=== PATIENT | female | born 1955 ===

== ENCOUNTER 2017-03-30 18:34 | Inpatient (IN) | payer MEDICARE, OTHER ==
[2017-03-30 18:55] VITALS: BMI 19.7
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
[2017-03-30 19:57] LABS: BASO # 0.02 K/mm3 (0.0-2.0); BASO % 0.4 % (0.0-3.0); EOS # 0.1 (0.0-0.7); EOS % 2.3 % (1.5-5.0); GRAN # 2.84 (1.4-6.5); GRAN % 49.9 % (50.0-68.0); LYMPH # 2.2 (1.2-3.4); LYMPH % 38.9 % (22.0-35.0); MEAN CELL VOLUME 88.9 fl (80.0-105.0); MEAN CORPUSCULAR HEMOGLOBIN 29.3 pg (25.0-35.0); MEAN PLATELET VOLUME 9.4 fl (7.0-11.0); MONO # 0.5 (0.1-0.6); MONO % 8.5 % (1.0-6.0); RBC 4.43 10^6/uL (3.5-6.1); RED CELL DISTRIBUTION WIDTH 14.2 % (11.5-14.5); WHITE BLOOD COUNT 5.7 10^3/ul (4.5-11.0)
[2017-03-30 20:12] LABS: ALB/GLOB RATIO 1.2 (1.1-1.8); ALBUMIN 3.8 g/dL (3.0-4.8); ALT/SGPT 32 U/L (7-56); AST/SGOT 34 U/L (14-36); BLOOD UREA NITROGEN 22 mg/dL (7-21); CALCIUM 9.9 mg/dL (8.4-10.5); GFR AFRICAN-AMERICAN > 60; GFR NON-AFRICAN AMERICAN > 60
[2017-03-30 20:23] LABS: ACETAMINOPHEN < 10.0 ug/ml (10.0-20.0); SALICYLATE < 1 mg/dL (2.0-20.0)
[2017-03-30 20:42] LABS: URINE BILIRUBIN NEGATIVE (NEGATIVE); URINE BLOOD MODERATE (NEGATIVE); URINE GLUCOSE (UA) NEGATIVE (NEGATIVE); URINE LEUKOCYTE ESTERASE NEGATIVE Leu/uL (NEGATIVE); URINE NITRATE NEGATIVE (NEGATIVE); URINE PROTEIN NEGATIVE mg/dL (<30 mg/dL); URINE UROBILINOGEN 0.2 E.U./dL (<1 E.U./dL)
[2017-03-30 20:45] LABS: URINE APPEARANCE SL CLOUDY (CLEAR); URINE COLOR YELLOW (YELLOW)
[2017-03-30 20:55] LABS: URINE EPITHELIAL CELLS 0 - 2 /hpf (0-5); URINE WBC 0 - 2 /hpf (0-6)
[2017-03-30 20:56] LABS: URINE BACTERIA MANY (NEG)
[2017-03-30 21:04] LABS: BARBITURATES, UR NEGATIVE (NEGATIVE); BENZODIAZEPINES, UR NEGATIVE (NEGATIVE); OPIATES, UR NEGATIVE (NEGATIVE); PHENCYCLIDINE, UR NEGATIVE (NEGATIVE)
[2017-03-30] MEDS ORDERED: cefTRIAXone 1 gm 1 GM/100 ML BAG IVPB STA (21:56)
--- NOTE | 2017-03-31 08:19 | RAD ---
PROCEDURE: CHEST RADIOGRAPH, 1 VIEW HISTORY: r/o infiltrate COMPARISON: None available. FINDINGS: LUNGS: The lungs are clear. PLEURA: No pneumothorax or pleural fluid seen. CARDIOVASCULAR: Normal. OSSEOUS STRUCTURES: No significant abnormalities. VISUALIZED UPPER ABDOMEN: Normal. OTHER FINDINGS: None. IMPRESSION: No active pulmonary disease.
--- NOTE | 2017-03-31 14:04 | CON ---
DATE: 03/31/2017 CHIEF COMPLAINT: History of Lewy body dementia. HISTORY OF PRESENT ILLNESS: A 61-year-old woman with history of Alzheimer's type with Lewy body dementia which has been diagnosed by psychiatrist as well as outpatient neurologist who came in for worsening memory problems and is unable to answer questions during our interview during the examination. She was very tangential. She is only alert to herself but not to person, place or month. She is very restless to removing things from her body. She is on Klonopin 1 mg p.o. t.i.d. at home as well as Remeron 15 mg p.o. at bedtime. She is mildly dehydrated, otherwise labs are unremarkable. Blood pressures are stable. She is moving all extremities but has some cogwheel rigidity at the both wrists and slight increased tone throughout. She is mumbling words. There seems most likely confabulation. She is incontinent and uses diapers. She is restless to touch and remove things at times. PAST MEDICAL HISTORY: Alzheimer's type dementia, Lewy body dementia. REVIEW OF SYSTEMS: A 14-point review of systems is negative except per the HPI. FAMILY HISTORY: Noncontributory. SOCIAL HISTORY: No illicit drug use, smoking or ETOH abuse. MEDICATIONS: Reviewed by nursing reconciliation sheet. ALLERGIES: NO KNOWN DRUG ALLERGIES. PHYSICAL EXAMINATION: VITAL SIGNS: Temperature is 97.7, pulse rate 86, blood pressure 115/67, respiratory rate of 18, and oxygen saturation 97% on room air. GENERAL: The patient is sitting up in bed, in no acute distress. HEENT: Head is atraumatic and normocephalic. PERRLA. Extraocular muscles intact. NECK: Supple. No JVD. No adenopathy noted. LUNGS: Clear to auscultation. No adventitious sounds. HEART: S1 and S2. Normal rate and rhythm. No murmurs, rubs, or gallops. ABDOMEN: Soft, nontender, nondistended. Bowel sounds are present. EXTREMITIES: No clubbing, no cyanosis. Peripheral pulses are 2+ felt bilaterally. NEURO: The patient is alert and oriented to self, not month or year. Recall after 5 minutes is 0 out of 3. Poor attention, slow thought process. She is slightly confabulating and has poor judgement. Cranial nerves II through XII intact. Motor exam; increased tone throughout, moves all extremities equally. Mild cogwheel rigidity at the both wrists and slight increased tone throughout. Sensory exam, light touch, pinprick, proprioception, vibration is intact. DTRs are 2+ throughout. Coordination difficult to do with the patient not cooperating as well as gait is deferred for now. LABORATORY DATA: Sodium 147, potassium 4.1, chloride of 109, carbon dioxide 30, BUN of 22, creatinine of 0.8, random glucose of 103. ASSESSMENT AND PLAN: This is a 61-year-old woman with worsening memory issues with history of Lewy body dementia, Alzheimer's type dementia, who has been on and off treatments by psychiatrist, Dr. Cantrell, and her neurologist but has been having worsening hallucinations, more restless and has tried multiple antipsychotics which did not suit the patient in the past. I was called to evaluate. As of now, there is no really much cure for the dementia with Lewy body, most of which is palliative. Since she is not doing well to atypical antipsychotics in the past, I would consider to continue with her Klonopin 1 mg p.o. t.i.d. and add Namenda 10 mg p.o. b.i.d. for cognition and to avoid restlessness. I am unaware if she is able to tolerate Seroquel or not. We will defer that to the psychiatrist. Clozaril is another option as per Psychiatry and trazodone might be useful at night 50 mg p.o. at bedtime. At this time, she will need more of long-term placement, delirium precautions, avoid night time interruptions and we need a Physical Therapy/Occupational Therapy evaluation. Continue with psychiatric followup. Thank you for this consult. Joselito Baker MD
--- NOTE | 2017-03-31 15:59 | CARD ---
APPROVED REPORT EKG Measurement Heart [id number] <Conclusion> Normal sinus rhythm Rightward axis Borderline ECG
[2017-03-31 18:35] LABS: FOLATE > 20.0 ng/mL
--- NOTE | 2017-03-31 19:01 | HP ---
HISTORY OF PRESENT ILLNESS: The patient is admitted to the [facility] in [place] via the Emergency Room last night. The patient presented with altered mental state, aggressive behavior according to the family. The patient also had some discomfort in the abdomen and apparently was in retention of urine. The patient has past history of Alzheimer's disease with Lewy body. The patient has no history of alcohol or substance abuse history. He has no previous history of surgery. The patient has had history of neurological and psychiatric evaluation in the past. The patient has no known allergies either. The patient does not have a DNR. After evaluation in the Emergency Room, the patient was admitted to the [facility] for evaluation and treatment for her altered mental state. We will have the patient was seen by the Behavior Care Physician and a Neurologist. PHYSICAL EXAMINATION: GENERAL: The patient is a frail lady, not capable of answering questions. VITAL SIGNS: Pulse was 75, blood pressure was 115/67, respirations are 16 and O2 sat 100% on room air. HEENT: The patient's head is normocephalic. NECK: Thyroid is not enlarged. Carotid pulses are present. LUNGS: Trachea is central. Breath sounds are vesicular. No adventitious sounds. HEART: Normal sinus rhythm. S1 and S2 present. ABDOMEN: Soft. Liver and spleen not palpable. 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 LABORATORY DATA: Urinalysis, the patient had to be catheterized because she had retention of urine. The patient's blood work shows that her white count was 5,700, granulocytes of 49%, and leukocytes of 38.9%. The patient's sodium, potassium, BUN and creatinine were remarkably within normal range. The patient's GFR is good. Chest x-ray was clear. The patient's Psychiatric evaluation in the Emergency Room was done. The patient is admitted because of behavioral disorder and we will followup and have doctor from the Behavioral Care Unit also see the patient and a Neurologist will also see the patient on consultation. MEDICATIONS: The patient is on Klonopin 1 mg t.i.d. IMPRESSION AND PLAN: The patient is on Remeron 50 mg at bedtime. She will be put on Macrobid twice a day for urinary retention, urinary infection and hematuria. Jessica Carlson MD [facility] # [id number]
[2017-04-01 08:01] LABS: BASO # 0.03 K/mm3 (0.0-2.0); BASO % 0.6 % (0.0-3.0); EOS # 0.2 (0.0-0.7); EOS % 2.8 % (1.5-5.0); GRAN # 2.08 (1.4-6.5); GRAN % 38.3 % (50.0-68.0); HEMOGLOBIN 12.3 g/dL (12.0-16.0); LYMPH # 2.8 (1.2-3.4); LYMPH % 51.1 % (22.0-35.0); MEAN CELL VOLUME 88.3 fl (80.0-105.0); MEAN CORPUSCULAR HEMOGLOBIN 28.7 pg (25.0-35.0); MEAN CORPUSCULAR HGB CONC 32.5 g/dl (31.0-37.0); MEAN PLATELET VOLUME 9.6 fl (7.0-11.0); MONO # 0.4 (0.1-0.6); MONO % 7.2 % (1.0-6.0); RBC 4.28 10^6/uL (3.5-6.1); RED CELL DISTRIBUTION WIDTH 14.2 % (11.5-14.5); WHITE BLOOD COUNT 5.4 10^3/ul (4.5-11.0)
[2017-04-01 08:28] LABS: ALB/GLOB RATIO 1.2 (1.1-1.8); ALBUMIN 3.6 g/dL (3.0-4.8); ALT/SGPT 36 U/L (7-56); AST/SGOT 41 U/L (14-36); BLOOD UREA NITROGEN 21 mg/dL (7-21); CALCIUM 9.7 mg/dL (8.4-10.5); GFR AFRICAN-AMERICAN > 60; GFR NON-AFRICAN AMERICAN > 60
--- NOTE | 2017-04-01 13:43 | PN ---
DATE: 04/01/2017 The patient is seen in [facility]. Room 562, bed 1. SUBJECTIVE: The patient was admitted via the emergency room for altered mental state, aggressive behavior, and the patient has also some discomfort in the abdomen. The patient had retention of urine. At the time of evaluation in the ER, she had to have a straight cath done. The patient has had previous diagnosis of Alzheimer's disease with Lewy body. PHYSICAL EXAMINATION: GENERAL: Currently, the patient is lying down, asleep. I tried to wake her up, but she was under sedation. The patient takes Klonopin and Remeron. VITAL SIGNS: The pulse is 80, blood pressure 104/65, respirations are 18. The patient is afebrile. LUNGS: Clear. HEART: Normal sinus rhythm. ABDOMEN: Soft. Liver and spleen are not palpable. 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 The patient's medications will be continued. The patient should be evaluated by the behavioral care doctor. Consultation has been placed. We will continue current management and follow. Jessica Carlson MD
--- NOTE | 2017-04-01 17:27 | CT ---
PROCEDURE: CT HEAD WITHOUT CONTRAST. HISTORY: AMS/DEMENTIA COMPARISON: No prior study available for comparison. TECHNIQUE: Axial computed tomography images were obtained through the head/brain without intravenous contrast. Radiation dose: Total exam DLP = 849.48 mGy-cm. This CT exam was performed using one or more of the following dose reduction techniques: Automated exposure control, adjustment of the mA and/or kV according to patient size, and/or use of iterative reconstruction technique. FINDINGS: HEMORRHAGE: No acute parenchymal, subarachnoid nor extra-axial hemorrhage. BRAIN: Moderate diffuse/confluent chronic white matter ischemic changes seen extending peripherally into the deep and subcortical white matter both cerebral hemispheres. . No evidence of large acute infarct. No obvious parenchymal nor extra-axial mass or collection seen on this noncontrast study. Moderate central volume loss. VENTRICLES: No obstructive hydrocephalus. CALVARIUM: There are no acute calvarial fractures. PARANASAL SINUSES: Diminutive appearing/hypoplastic maxillary antra. The remaining visualized paranasal sinuses well-developed and currently well-aerated. No fluid levels seen to suggest acute sinusitis. Minimal mucosal thickening within a few ethmoid air cells. MASTOID AIR CELLS: Unremarkable as visualized. No inflammatory changes. OTHER FINDINGS: Orbits and contents grossly unremarkable. IMPRESSION: No acute intracranial hemorrhage. Moderate diffuse/confluent chronic white matter ischemic changes. Moderate central volume loss.
[2017-04-01] MEDS: Potassium Chloride 20 mEq ER Tab PO SCH (17:43)
[2017-04-01] MEDS: Pantoprazole 40 mg EC Tab PO SCH (17:50)
[2017-04-02] MEDS: Pantoprazole 40 mg EC Tab PO SCH (05:51)
[2017-04-02 07:37] LABS: LDL CHOLESTEROL 68 mg/dL (0-129)
[2017-04-02 07:38] LABS: ALB/GLOB RATIO 1.2 (1.1-1.8); ALBUMIN 4.3 g/dL (3.0-4.8); ALT/SGPT 40 U/L (7-56); AST/SGOT 43 U/L (14-36); BILIRUBIN,DIRECT 0.4 mg/dL (0.0-0.4); BLOOD UREA NITROGEN 20 mg/dL (7-21); GFR AFRICAN-AMERICAN > 60; GFR NON-AFRICAN AMERICAN > 60; HDL CHOLESTEROL 60 mg/dL (29-60); MAGNESIUM 2.1 mg/dL (1.7-2.2)
[2017-04-02 07:42] LABS: FREE T4 0.77 ng/dL (0.78-2.19); T4 8.5 ug/dL (5.5-11.0)
[2017-04-02 08:34] LABS: BASO # 0.02 K/mm3 (0.0-2.0); BASO % 0.3 % (0.0-3.0); EOS # 0.2 (0.0-0.7); EOS % 2.5 % (1.5-5.0); GRAN # 3.29 (1.4-6.5); GRAN % 51.4 % (50.0-68.0); LYMPH # 2.3 (1.2-3.4); LYMPH % 36.6 % (22.0-35.0); MEAN CELL VOLUME 88.8 fl (80.0-105.0); MEAN CORPUSCULAR HEMOGLOBIN 29.7 pg (25.0-35.0); MEAN CORPUSCULAR HGB CONC 33.4 g/dl (31.0-37.0); MEAN PLATELET VOLUME 9.9 fl (7.0-11.0); MONO # 0.6 (0.1-0.6); MONO % 9.2 % (1.0-6.0); RBC 4.72 10^6/uL (3.5-6.1); RED CELL DISTRIBUTION WIDTH 14.1 % (11.5-14.5); WHITE BLOOD COUNT 6.4 10^3/ul (4.5-11.0)
--- NOTE | 2017-04-02 09:21 | CP.PCM.PN ---
<Yen Alvarez - Last Filed: 04/02/17 10:05> Subjective - Date & Time of Evaluation Date of Evaluation: 04/02/17 Time of Evaluation: 09:22 - Subjective Subjective: Neurology PGY-[address] Baker Confusion at times. AAO x 1. At times, pt was difficult to be redirected per RN. Figitting in bed. Calm as of this moment Objective - Vital Signs/Intake and Output Vital Signs (last 24 hours): Temp Pulse Resp BP Pulse Ox 97.9 F 75 16 112/73 96 04/01/17 16:00 04/01/17 16:00 04/01/17 16:00 04/01/17 16:00 04/01/17 16:00 Intake and Output: 04/02/17 04/02/17 06:59 18:59 Intake Total 240 Output Total 0 Balance 240 - Medications Medications: Current Medications Clonazepam (Klonopin) 1 mg PO TID [facility] PRN Reason: Protocol Last Admin: 04/01/17 17:43 Dose: 1 mg Heparin Sodium (Porcine) (Heparin) 5,000 units SC Q8 [facility] PRN Reason: Protocol Last Admin: 04/02/17 05:50 Dose: 5,000 units Mirtazapine (Remeron) 15 mg PO HS [facility] Last Admin: 04/01/17 21:13 Dose: 15 mg Nitrofurantoin Macrocrystals (Macrobid) 100 mg PO Q12 [facility] Stop: 04/03/17 23:59 Last Admin: 04/01/17 21:13 Dose: 100 mg Pantoprazole Sodium (Protonix Ec Tab) 40 mg PO 0600 [facility] Last Admin: 04/02/17 05:51 Dose: 40 mg - Labs Labs: 04/02/17 08:15 04/02/17 06:30 - Constitutional Appears: No Acute Distress - Head Exam Head Exam: ATRAUMATIC, NORMAL INSPECTION, NORMOCEPHALIC - Eye Exam Eye Exam: EOMI, Normal appearance, PERRL Pupil Exam: NORMAL ACCOMODATION - ENT Exam ENT Exam: Mucous Membranes Moist - Neck Exam Additional comments: supple - Respiratory Exam Respiratory Exam: Clear to Ausculation Bilateral, NORMAL BREATHING PATTERN - Cardiovascular Exam Cardiovascular Exam: REGULAR RHYTHM, +S1, +S2. absent: Murmur - Neurological Exam Additional comments: Alert and oriented to self Recall 0/3 Poor attention Motor: move all extremities. mild cogwheel rigitidy at both rists and slight increased tone throughout Sensory: intact DTR: 2+ Coordination: limited by pt coorperation - Psychiatric Exam Psychiatric exam: Flat Affect - Skin Skin Exam: Dry, Warm Assessment and Plan - Assessment and Plan (Free Text) Plan: Ms Janie Diaz, 61F, with PMH Alzheimer's type with Lewy body dementia c/o worsening memory problem. She was tangential, AAO to self only and restless. She tried multiple antipsychotics but did not suit the pt in the past. - CT head: moderate central volume loss; moderate diffuse confluent chronic white matter ischemic changes - Continue Klonopin 1 TID - Add Namenda 10 BID for cognition and avoid restlesness - Defer to psychiatrist re: seroquel cs Clozaril vs trazodone 50 HS - recommend long-term placement, delirium precaitions, avoid night time interruptions - PT/OT - Continue psych follow up - ____Pending EEG, carotid u/s, ECHO - Continue UTI management for primary Outpt Psychiatry: Dr Cantrell Outpt Neurologist: s/r/d/w Dr. Baker <Joselito Baker - Last Filed: 04/02/17 11:05> Objective - Vital Signs/Intake and Output Vital Signs (last 24 hours): Temp Pulse Resp BP Pulse Ox 97.9 F 75 16 112/73 96 04/01/17 16:00 04/01/17 16:00 04/01/17 16:00 04/01/17 16:00 04/01/17 16:00 Intake and Output: 04/02/17 04/02/17 06:59 18:59 Intake Total 240 Output Total 0 Balance 240 - Medications Medications: Current Medications Clonazepam (Klonopin) 1 mg PO TID [facility] PRN Reason: Protocol Last Admin: 04/02/17 09:23 Dose: 1 mg Heparin Sodium (Porcine) (Heparin) 5,000 units SC Q8 [facility] PRN Reason: Protocol Last Admin: 04/02/17 05:50 Dose: 5,000 units Memantine (Namenda) 10 mg PO BID [facility] Mirtazapine (Remeron) 15 mg PO HS [facility] Last Admin: 04/01/17 21:13 Dose: 15 mg Nitrofurantoin Macrocrystals (Macrobid) 100 mg PO Q12 [facility] Stop: 04/03/17 23:59 Last Admin: 04/02/17 09:23 Dose: 100 mg Pantoprazole Sodium (Protonix Ec Tab) 40 mg PO 0600 [facility] Last Admin: 04/02/17 05:51 Dose: 40 mg - Labs Labs: 04/02/17 08:15 04/02/17 06:30 Attending/Attestation - Attestation I have personally seen and examined this patient.: Yes I have fully participated in the care of the patient.: Yes I have reviewed all pertinent clinical information, including history, physical exam and plan: Yes
--- NOTE | 2017-04-02 11:54 | CP.PCM.PN ---
Subjective - Date & Time of Evaluation Date of Evaluation: 04/02/17 Time of Evaluation: 11:48 - Subjective Subjective: Medicine Progress Note: Patient seen and assessed at bedside. Patient noted to be restless overnight, with nursing staff reporting that patient continuously wrapped her sheets around her hand. Patient awake and alert but uncooperative with examination. Patient unresponsive to HPI/ROS questioning in both guatemalan and bengali. ROS limited due to patient cooperation. Objective - Vital Signs/Intake and Output Vital Signs (last 24 hours): Temp Pulse Resp BP Pulse Ox 97.9 F 75 16 112/73 96 04/01/17 16:00 04/01/17 16:00 04/01/17 16:00 04/01/17 16:00 04/01/17 16:00 Intake and Output: 04/02/17 04/02/17 06:59 18:59 Intake Total 240 Output Total 0 Balance 240 - Medications Medications: Current Medications Clonazepam (Klonopin) 1 mg PO TID [facility] PRN Reason: Protocol Last Admin: 04/02/17 09:23 Dose: 1 mg Heparin Sodium (Porcine) (Heparin) 5,000 units SC Q8 [facility] PRN Reason: Protocol Last Admin: 04/02/17 05:50 Dose: 5,000 units Memantine (Namenda) 10 mg PO BID [facility] Last Admin: 04/02/17 11:12 Dose: Not Given Mirtazapine (Remeron) 15 mg PO HS [facility] Last Admin: 04/01/17 21:13 Dose: 15 mg Nitrofurantoin Macrocrystals (Macrobid) 100 mg PO Q12 [facility] Stop: 04/03/17 23:59 Last Admin: 04/02/17 09:23 Dose: 100 mg Pantoprazole Sodium (Protonix Ec Tab) 40 mg PO 0600 [facility] Last Admin: 04/02/17 05:51 Dose: 40 mg - Labs Labs: 04/02/17 08:15 04/02/17 06:30 - Constitutional Appears: Non-toxic, No Acute Distress - Head Exam Head Exam: ATRAUMATIC, NORMAL INSPECTION, NORMOCEPHALIC - Eye Exam Eye Exam: Normal appearance - ENT Exam ENT Exam: Mucous Membranes Moist, Normal Exam - Neck Exam Neck Exam: Full ROM, Normal Inspection. absent: Lymphadenopathy - Respiratory Exam Respiratory Exam: Clear to Ausculation Bilateral, NORMAL BREATHING PATTERN - Cardiovascular Exam Cardiovascular Exam: REGULAR RHYTHM, RRR, +S1, +S2 - GI/Abdominal Exam GI & Abdominal Exam: Soft, Normal Bowel Sounds - Extremities Exam Extremities Exam: Full ROM, Normal Capillary Refill, Normal Inspection. absent : Calf Tenderness, Joint Swelling, Pedal Edema, Tenderness - Back Exam Back Exam: Full ROM, NORMAL INSPECTION. absent: CVA tenderness (L), CVA tenderness (R) - Neurological Exam Neurological Exam: Alert, Awake. absent: Oriented x3 - Psychiatric Exam Psychiatric exam: Flat Affect - Skin Skin Exam: Dry, Intact, Normal Color, Warm Assessment and Plan - Assessment and Plan (Free Text) Assessment: 61 year old female with a past medical history significant for Alzheimer's with Lewy body dementia who presented with family complaining of worsening memory problem. She has been uncooperative by unresponsiveness to most questioning since admission but was noted to be oriented to self. She has tried multiple antipsychotics in the past with mixed results as far as relief of her symptoms. Plan: 1. AMS in setting of Alzheimer's/Lewy Body Dementia -CT Head showed no acute intracranial abnormalities -Chest X-Ray showed no active pulmonary disease -EKG showed NSR -UDS negative -Echo, Carotid Doppler and EEG pending -RPR and Lyme serology pending -Continue Namenda -Neurology and Psychiatry consulted, all recommendations appreciated 2. UTI -UA showing many bacteria with no epithelial cells, no LE, no nitrates and 2-5 WBC's -Continue Macrobid -Urology consulted, all recommendations appreciated 3. History of Depression/Anxiety -Continue Klonopin and Remeron GI Prophylaxis: Protonix DVT Prophylaxis: Heparin and SCD's Diet: Regular Dispo: TCU evaluation pending Patient seen and case discussed with attending, Dr. Devries.
[2017-04-02 13:31] LABS: FOLATE > 20.0 ng/mL
--- NOTE | 2017-04-02 16:05 | EEG ---
DATE: 04/02/2017 ELECTROENCEPHALOGRAM CONDITION OF THE RECORDING: Drowsy. MEDICATIONS: Reviewed by nursing reconciliation sheet. INTERPRETATION: This is a 16-channel international recording. Background activity was composed of 5 to 7 cycles per second. There was small amount of beta activity of 16 to 20 cycles per second seen in this tracing. There was increased amount of theta activity of 5 to 7 cycles per second seen in this tracing. Drowsiness was characterized by mixed beta and theta activities. Sleep was characterized by vertex transient waves, sleep spindles, and bilateral slowing. Photic stimulation showed no changes in the tracing. No paroxysmal activity is noted in this recording. CONCLUSION: This is an abnormal electroencephalogram due to presence of mild diffuse slowing throughout. No evidence of any epileptiform activity. It is mostly consistent with bilateral cerebral dysfunction, mild type. Joselito Baker MD
[2017-04-02 19:44] LABS: LYME IGM NEGATIVE (NEGATIVE)
[2017-04-02 20:19] LABS: LYME IGG NEGATIVE (NEGATIVE)
[2017-04-02] MEDS: Potassium Chloride 20 mEq ER Tab PO SCH (22:18)
[2017-04-02 23:28] LABS: URINE BILIRUBIN NEGATIVE (NEGATIVE); URINE BLOOD SMALL (NEGATIVE); URINE GLUCOSE (UA) NEGATIVE (NEGATIVE); URINE LEUKOCYTE ESTERASE NEGATIVE Leu/uL (NEGATIVE); URINE NITRATE NEGATIVE (NEGATIVE); URINE PROTEIN NEGATIVE mg/dL (<30 mg/dL); URINE UROBILINOGEN 0.2 E.U./dL (<1 E.U./dL)
[2017-04-02 23:29] LABS: URINE APPEARANCE CLEAR (CLEAR); URINE COLOR YELLOW (YELLOW)
[2017-04-02 23:50] LABS: URINE BACTERIA OCC (NEG); URINE WBC 0 - 2 /hpf (0-6)
--- NOTE | 2017-04-03 02:37 | PN ---
DATE: 04/02/2017 LOCATION: Room 562, bed 1. SUBJECTIVE: The patient's overnight nurse's notes were reviewed. The patient was found to be confused, disoriented. Episodic restlessness also was noted. The patient was found to be incontinent of urine as per the nurse's notes. The patient continued to be confused. During the night, the patient slept well. The patient was seen by the psychiatrist today. The patient was found to be alert, awake, oriented x1. jig worker has spoken to the patient's [id number]. OBJECTIVE: VITAL SIGNS: T-max 98, heart rates 66, 75, 68, 79, blood pressures 112/73, 106/84, 104/65, 102/62, respirations 16-18, O2 sat 98-96%. HEENT: Head normocephalic, atraumatic. Pinkish conjunctivae. Dry oral mucosa. NECK: No neck rigidity. Questionable soft carotid bruit. CHEST: Kyphosis. LUNG: The patient has upper lung field rhonchi anteriorly. No rales, crackles or wheezing. CARDIOVASCULAR: S1, S2, regular rhythm. Unable to appreciate any murmur, gallop or rub at this time. ABDOMEN: Soft, positive bowel sounds. No hepatosplenomegaly noted. No guarding. No rigidity. No rebound tenderness. GENITALIA: Female. RECTAL: Examination is deferred. EXTREMITIES: Show no pitting edema, no calf numbness, no Homans' sign. Positive SCDs noted. NEUROLOGICAL: Cranial nerves II-XII limited. The patient is confused. Disoriented. MUSCULOSKELETAL: Shows a body mass index of 18.6. DIAGNOSTIC DATA: On 04/02/2017; WBC 6.4, hemoglobin/hematocrit 14 and 42, platelet 228. Sodium 144, potassium 3.7, chloride 105, CO2 30, anion gap 13, BUN 20, creatinine 0.7, GFR greater than 60, glucose 89, calcium 10.0, magnesium 2.1, AST 43, rest of the LFTs are normal. Cholesterol 154, LDL 68, HDL 60. Vitamin B12 of 418. Vitamin D 25-hydroxy 51. TSH 3.08, T4 is 8.0. Urine drug screen is negative. Salicylate, alcohol, and Tylenol negative. Lyme IgM/IgG negative. RPR negative. EEG shows diffuse slowing with bilateral cerebral hemisphere dysfunction. IMPRESSION AND PLAN 1. Behavioral disorder. 2. Acute exacerbation of dementia with delirium. 3. History of Lewy body Alzheimer's type dementia. 4. Acute exacerbation of dementia. 5. Confusion. 6. Memory and cognitive impairment. 7. Possible behavioral disorder. 8. Hypokalemia. 9. Prerenal kidney injury. 10. Mild transaminitis. 11. Microscopic hematuria and bacteriuria 12. Bilateral cerebral dysfunction. 13. 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 14. Moderate diffuse chronic white matter ischemic disease of the brain with cerebral cortical atrophy of the brain. 15. Deconditioning. 16. Gait dysfunction. 17. Cerebral cortical atrophy of the brain. PLAN: At this time, patient is currently being followed by Neurology and Psychiatry. The patient's case was referred to TCU. Current medications are Heparin 5000 subcu q.8, Klonopin 1 mg three times a day. The patient is on Macrobid 100 mg q.12 - awaiting urine cultures, Namenda 10 mg twice a day, Protonix 40 mg daily, Remeron 15 mg at bedtime. Carotid Doppler and echo results are pending. The patient is on regular diet. The patient has been ordered out-of-bed, SCDs, RON stockings. Occupational therapy and physical therapy ordered. The patient is seen by the physical therapist. The patient is awaiting Psychiatry evaluation. We are awaiting carotid ultrasound and echo report. The patient was seen by the social human services assistants. According to the social human services assistants, the patient lives at home with her sister. The patient is referred for physical therapy. The patient's Macrobid will be discontinued once the patient's urine cultures are negative. The patient will be started on low-dose potassium supplementation because of hypokalemia. In view of the patient's underlying medical problems, the patient will require a 24-hour care and supervision due to the patient's decompensated neurological, psychiatric and overall medical condition. Dictated and electronically signed, not read. Maxx Devries MD
[2017-04-03] MEDS: Sodium Chloride 0.9% 1,000 ML IV SCH ×2 (05:00→20:47)
[2017-04-03] MEDS: Pantoprazole 40 mg EC Tab PO SCH (05:24)
[2017-04-03 08:08] VITALS: RESP 20
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
--- NOTE | 2017-04-03 09:18 | CP.PCM.PN ---
Subjective - Date & Time of Evaluation Date of Evaluation: 04/03/17 Time of Evaluation: 09:13 - Subjective Subjective: Medicine Progress Note: Patient seen and assessed at bedside. Patient noted to be calmer overnight with less restless reported by nursing staff. Patient awake and alert but still uncooperative with examination and continues to pick through her bed linen during interview. Patient unresponsive to HPI/ROS questioning in both french and greek. ROS limited due to patient cooperation. Objective - Vital Signs/Intake and Output Vital Signs (last 24 hours): Temp Pulse Resp BP Pulse Ox 98.4 F 88 20 119/75 96 04/03/17 07:30 04/03/17 07:30 04/03/17 07:30 04/03/17 07:30 04/03/17 07:30 - Medications Medications: Current Medications Clonazepam (Klonopin) 1 mg PO TID [facility] PRN Reason: Protocol Last Admin: 04/02/17 17:23 Dose: 1 mg Heparin Sodium (Porcine) (Heparin) 5,000 units SC Q8 [facility] PRN Reason: Protocol Last Admin: 04/03/17 05:44 Dose: 5,000 units Sodium Chloride (Sodium Chloride 0.9%) 1,000 mls @ 80 mls/hr IV .[id number] [facility] Last Admin: 04/03/17 05:00 Dose: 80 mls/hr Memantine (Namenda) 10 mg PO BID [facility] Last Admin: 04/02/17 17:24 Dose: 10 mg Mirtazapine (Remeron) 15 mg PO HS [facility] Last Admin: 04/02/17 22:19 Dose: 15 mg Nitrofurantoin Macrocrystals (Macrobid) 100 mg PO Q12 [facility] Stop: 04/03/17 23:59 Last Admin: 04/02/17 22:19 Dose: 100 mg Pantoprazole Sodium (Protonix Ec Tab) 40 mg PO 0600 [facility] Last Admin: 04/03/17 05:24 Dose: Not Given Potassium Chloride (K-Dur 20 Meq Er Tab) 20 meq PO DAILY [facility] Last Admin: 04/02/17 22:18 Dose: 20 meq - Labs Labs: 04/02/17 08:15 04/02/17 06:30 - Constitutional Appears: No Acute Distress - Head Exam Head Exam: ATRAUMATIC, NORMAL INSPECTION, NORMOCEPHALIC - Eye Exam Eye Exam: EOMI, Normal appearance, PERRL Pupil Exam: NORMAL ACCOMODATION, PERRL - ENT Exam ENT Exam: Mucous Membranes Moist, Normal Exam - Neck Exam Neck Exam: Full ROM, Normal Inspection. absent: Lymphadenopathy - Respiratory Exam Respiratory Exam: Clear to Ausculation Bilateral, NORMAL BREATHING PATTERN - Cardiovascular Exam Cardiovascular Exam: REGULAR RHYTHM, +S1, +S2. absent: Murmur - GI/Abdominal Exam GI & Abdominal Exam: Soft, Normal Bowel Sounds. absent: Tenderness - Extremities Exam Extremities Exam: Full ROM, Normal Capillary Refill, Normal Inspection. absent : Calf Tenderness, Joint Swelling, Pedal Edema, Tenderness - Neurological Exam Neurological Exam: Alert, Awake. absent: Oriented x3 (Unresponsive to questioning for orientation assessment) - Skin Skin Exam: Dry, Intact, Normal Color, Warm Assessment and Plan - Assessment and Plan (Free Text) Assessment: 61 year old female with a past medical history significant for Alzheimer's with Lewy body dementia who presented with family complaining of worsening memory problem. She has been uncooperative by unresponsiveness to most questioning since admission but was noted to be oriented to self. She has tried multiple antipsychotics in the past with mixed results as far as relief of her symptoms. Psychiatry would like to trial patient on Clozaril but needs to confirm with POA /primary caregiver that patient can comply with necessary CBC monitoring. Patient scheduled for echocardiogram this afternoon. Plan: 1. AMS in setting of Alzheimer's/Lewy Body Dementia -CT Head showed no acute intracranial abnormalities -Chest X-Ray showed no active pulmonary disease -EEG showing bilateral cerebral dysfunction with epileptiform activity -EKG showed NSR -Vitamin D, Vitamin B12 and Folate within normal limits -UDS, RPR and Lyme serology negative -Echo and rescheduled Carotid Doppler pending -Continue Namenda -Psychiatry recommends trial of Clozaril but needs to confirm with POA/primary caregiver that patient can comply with necessary CBC monitoring -Neurology and Psychiatry consulted, all recommendations appreciated -PT/OT evaluation and treatment pending 2. UTI -UA showing many bacteria with no epithelial cells, no LE, no nitrates and 2-5 WBC's -Continue Macrobid -Normal Saline at 80mls/hr -Urology consulted, all recommendations appreciated 3. History of Depression/Anxiety -Continue Klonopin and Remeron GI Prophylaxis: Protonix DVT Prophylaxis: Heparin and SCD's Diet: Regular Dispo: TCU evaluation pending Patient seen and case discussed with attending, Dr. Devries.
[2017-04-03] MEDS: Potassium Chloride 20 mEq ER Tab PO SCH (09:42)
--- NOTE | 2017-04-03 18:51 | PN ---
DATE: 04/03/2017 HISTORY OF PRESENT ILLNESS: The patient was followed up today. The patient appears to be sleepy as per caregiver who is next to the patient. The patient is doing relatively well today. The patient ate, but there is no meaningful conversation possible. This chief underwriter received phone call from the patient POA requesting this chief underwriter to call back. This chief underwriter call her back but the patient's sister and POA was not available. This chief underwriter left her a message. This chief underwriter had a prolonged conversation with Dr. Cantrell today. Based on the history, the patient was tried on Seroquel in the past, but doses was high 100 mg but the patient had adverse reaction. At the same time, this chief underwriter would like to discuss option to initiate Clozaril at the nighttime, but this plan need to be discussed with the patient POA and this chief underwriter is awaiting for a call back. PHYSICAL EXAMINATION: VITAL SIGNS: Stable. MEDICATIONS: Reviewed. The patient is on Klonopin 1 mg three times a day, heparin, Namenda, Remeron 15 mg scheduled, Macrobid, Protonix, K-Dur, Seroquel will be started 12.5 mg at the nighttime, sodium chloride. LABORATORY DATA: Reviewed. Most recent was from yesterday. MENTAL STATUS EXAM: This is not possible to assess, the patient is sleepy. Yesterday, the patient was nonverbal and was picking something on the blanket. IMPRESSION: The patient has Lewy body dementia on top of that delirium cannot be excluded. The patient has adverse reactions on psychotropic medications. PLAN: This chief underwriter would like to discuss the options with the patient power of agricultural adviser, her sister Glendy and make sure that the patient will be able to continue on Clozaril. This chief underwriter has concerns about compliance with the lab work which required weekly monitoring for 6 months after that twice a month for another 6 months and monthly indefinitely. I note that this is going to be very hard for the family and this chief underwriter would like to make sure that the patient will be able to continue that medication and it will be not hard for the family to be compliant with the lab work. This chief underwriter left message to power of agricultural adviser, waiting for call back. Meanwhile, Seroquel will be resumed 12.5 mg at the nighttime. Should you have any questions give me a call back. The patient needs to be continued on Klonopin as well as Namenda as well as Remeron. Pt was transferred to the [facility] for [facility] later on 04/04/17. pt needs to be f/u with psychiatrist in the facility within 48 hrs to make sure pt tolerates Depakote well. care and management of this pt took more than 45 min. thank you Carissa Zelaya MD [facility]
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
[2017-04-04] MEDS: Pantoprazole 40 mg EC Tab PO SCH (05:32)
[2017-04-04] MEDS ORDERED: DiphenhydrAMINE 50 mg/ml Inj IM ONE ×2 (06:00→10:15)
--- NOTE | 2017-04-04 07:46 | CP.PCM.PN ---
Subjective - Date & Time of Evaluation Date of Evaluation: 04/04/17 Time of Evaluation: 07:46 - Subjective Subjective: Medicine Progress Note: Patient seen and assessed at bedside. No acute events noted overnight by nursing staff. Patient awake and alert but still uncooperative with examination. Patient unresponsive to HPI/ROS questioning in both bulgarian and turkmen. ROS limited due to patient cooperation. Objective - Vital Signs/Intake and Output Vital Signs (last 24 hours): Temp Pulse Resp BP Pulse Ox 98.2 F 78 20 143/74 98 04/04/17 07:30 04/04/17 07:30 04/04/17 07:30 04/04/17 07:30 04/04/17 07:30 Intake and Output: 04/04/17 04/04/17 06:59 18:59 Intake Total 480 Balance 480 - Medications Medications: Current Medications Clonazepam (Klonopin) 1 mg PO TID [facility] PRN Reason: Protocol Last Admin: 04/03/17 17:21 Dose: 1 mg Heparin Sodium (Porcine) (Heparin) 5,000 units SC Q8 JOSSY PRN Reason: Protocol Last Admin: 04/04/17 05:50 Dose: 5,000 units Sodium Chloride (Sodium Chloride 0.9%) 1,000 mls @ 80 mls/hr IV .[id number] [facility] Last Admin: 04/03/17 20:47 Dose: Not Given Memantine (Namenda) 10 mg PO BID [facility] Last Admin: 04/03/17 17:21 Dose: 10 mg Mirtazapine (Remeron) 15 mg PO HS [facility] Last Admin: 04/03/17 21:32 Dose: 15 mg Pantoprazole Sodium (Protonix Ec Tab) 40 mg PO 0600 [facility] Last Admin: 04/04/17 05:32 Dose: Not Given Potassium Chloride (K-Dur 20 Meq Er Tab) 20 meq PO DAILY [facility] Last Admin: 04/03/17 09:42 Dose: 20 meq Quetiapine Fumarate (Seroquel) 12.5 mg PO HS [facility] PRN Reason: Protocol Last Admin: 04/03/17 21:32 Dose: 12.5 mg - Labs Labs: 04/02/17 08:15 04/02/17 06:30 - Constitutional Appears: Non-toxic - Head Exam Head Exam: ATRAUMATIC, NORMAL INSPECTION, NORMOCEPHALIC - Eye Exam Eye Exam: EOMI, Normal appearance, PERRL - ENT Exam ENT Exam: Mucous Membranes Moist, Normal Exam - Neck Exam Neck Exam: Full ROM, Normal Inspection. absent: Lymphadenopathy - Respiratory Exam Respiratory Exam: Clear to Ausculation Bilateral, NORMAL BREATHING PATTERN. absent: Accessory Muscle Use, Respiratory Distress - Cardiovascular Exam Cardiovascular Exam: REGULAR RHYTHM, +S1, +S2. absent: Murmur - GI/Abdominal Exam GI & Abdominal Exam: Soft, Normal Bowel Sounds - Extremities Exam Extremities Exam: Full ROM, Normal Capillary Refill, Normal Inspection. absent : Calf Tenderness, Joint Swelling, Pedal Edema, Tenderness - Back Exam Back Exam: NORMAL INSPECTION - Neurological Exam Neurological Exam: Alert, Awake - Skin Skin Exam: Dry, Intact, Normal Color, Warm Assessment and Plan - Assessment and Plan (Free Text) Assessment: 61 year old female with a past medical history significant for Alzheimer's with Lewy body dementia who presented with family complaining of worsening memory problem. She has been uncooperative by unresponsiveness to most questioning since admission but was noted to be oriented to self. She has tried multiple antipsychotics in the past with mixed results as far as relief of her symptoms. Psychiatry would like to trial patient on Clozaril but needs to confirm with POA /primary caregiver that patient can comply with necessary CBC monitoring. Plan: 1. AMS in setting of Alzheimer's/Lewy Body Dementia -CT Head showed no acute intracranial abnormalities -Chest X-Ray showed no active pulmonary disease -EEG showing bilateral cerebral dysfunction with epileptiform activity -EKG showed NSR -Vitamin D, Vitamin B12 and Folate within normal limits -UDS, RPR and Lyme serology negative -Echo and Carotid Doppler pending -Continue Namenda -Psychiatry recommends trial of Clozaril but needs to confirm with POA/primary caregiver that patient can comply with necessary CBC monitoring -Neurology and Psychiatry consulted, all recommendations appreciated -PT/OT evaluation and treatment pending 2. UTI -UA showing many bacteria with no epithelial cells, no LE, no nitrates and 2-5 WBC's -Completed course of Macrobid -Urology consulted, all recommendations appreciated 3. History of Depression/Anxiety -Continue Klonopin and Remeron GI Prophylaxis: Protonix DVT Prophylaxis: Heparin and SCD's Diet: Regular Dispo: TCU evaluation pending Patient seen and case discussed with attending, Dr. Devries.
[2017-04-04 09:16] LABS: ALB/GLOB RATIO 1.2 (1.1-1.8); ALBUMIN 3.9 g/dL (3.0-4.8); ALT/SGPT 39 U/L (7-56); AST/SGOT 39 U/L (14-36); BILIRUBIN,DIRECT 0.2 mg/dL (0.0-0.4); BLOOD UREA NITROGEN 15 mg/dL (7-21); CALCIUM 9.9 mg/dL (8.4-10.5); GFR AFRICAN-AMERICAN > 60; GFR NON-AFRICAN AMERICAN > 60; MAGNESIUM 1.8 mg/dL (1.7-2.2)
[2017-04-04] MEDS: Potassium Chloride 20 mEq ER Tab PO SCH (10:30)
[2017-04-04] MEDS ORDERED: Divalproex 125 mg EC Sprinkle Cap PO SCH (18:00)
[2017-04-04 19:28] VITALS: BP 129/72; PULSE 92; TEMP 98; O2SAT 97
--- NOTE | 2017-04-04 22:41 | PN ---
DATE: SUBJECTIVE: The patient was followed up today. There is some positive changes with the patient's presentation. The patient was able to speak in Sri Lankan, but other than that the patient is playing with her blanket and there is no meaningful conversation possible. Finally today, this senior mortgage underwriter had phone conversation with the patient's power of environmental attorney, her sister, Mylene, phone number is [phone]. This senior mortgage underwriter educated the patient's POA about treatment options, about Clozaril, but the patient's sister feels it will be not possible for the patient to continue on this medication because of intensive lab work need to be done on weekly basis. At the same time, the patient's sister does not want increased doses of Seroquel because of neck spasm. This senior mortgage underwriter also educated the patient's POA about Depakote and about muscle relaxant. The patient's sister gave this senior mortgage underwriter permission to start Depakote and continue on Seroquel. The patient's sister was interested in subacute rehab or Transitional Care Unit for Physical Therapy and rehabilitation. The patient's sister said that the patient was able to walk about a month ago and felt that at the present moment the patient is deconditioning. This senior mortgage underwriter also had phone conversation with the nephrology social worker, case management as well as advanced nurse practitioner and let them know about the treatment plan. Also discussed with the Physical Therapy team. Physical Therapy will reevaluate the patient today for appropriate referrals. PHYSICAL EXAMINATION: VITAL SIGNS: Reviewed. Vital signs seems to be stable. Temperature 98.2, pulse is 78, blood pressure is 143/74, respirations 20 and oxygen saturation is 98. MEDICATIONS: Reviewed. The patient is on Klonopin 1 mg three times a day, Depakote will be started at 125 mg twice a day, heparin, Namenda, Remeron 15 mg at the nighttime, Protonix, K-Dur and Seroquel 12.5 mg at the nighttime. LABORATORY DATA: Reviewed. Most recent was from 04/02/2017. As per report, the patient ripped IV line and there is no IV access. MENTAL STATUS EXAMINATION: As described above, there is no option to have meaningful conversation. No eye contact. The patient today was verbal, few words in Sri Lankan today. The patient appears to be uncooperative with all exams as well as evaluations. Insight and judgement seems to be impaired. Impulses are not predictable. IMPRESSION: As per history, Lewy body dementia. The patient has adverse reaction on Seroquel. The patient has muscle spasm. The patient has urinary tract infection for what the patient was admitted on the medical side which is clearing. PLAN: Seroquel need to be continued with a minimal dose of 12.5 mg at the nighttime. Clozaril, the patient's power of environmental attorney does not want to start this medication. Depakote was added for mood stabilization and impulsive behavior. Physical Therapy recommended for reevaluation of gait and possible Transitional Care Unit or subacute rehab referrals. Remeron should be continued. Case management as well as Physical Therapy involved and discussed with them. Power of environmental attorney was educated about risks, benefits and alternatives of the medications. Management of this case took more than 45 minutes. Thank you very much for letting me to participate in the care of your patient. Carissa Zelaya MD
--- NOTE | 2017-04-05 09:00 | CP.PCM.PCO ---
Addendum Addendum: 04/05/17 08:58 pt was transferred to [facility], tx options discussed with POA, see note for detailed information pt's POA was in agreement pt needs to be f/u by psychiatrist within 48hrs in the facility
--- NOTE | 2017-04-05 12:46 | DS ---
HISTORY OF PRESENT ILLNESS: Patient's case was referred to [facility] for discharge. Patient's family including a sister, agreed for subacute rehab at [facility]. Patient's overnight nurse's notes were reviewed. Patient has been combative, confused, ripped her IV and was found to be uncooperative. Patient was found to be uncooperative, laid in bed most of the time. PHYSICAL EXAMINATION: VITAL SIGNS: T-max 98.2; pulse 72, 78, 92; blood pressure 129/72, 143/74, 135/72; respiration 20; O2 sat 97% to 98%. HEENT: Patient's head examination, normocephalic and atraumatic. HEENT examination shows pink conjunctivae. Anicteric sclerae. No oropharyngeal lesion. No neck rigidity. No audible carotid bruit. CHEST: Kyphosis. LUNGS: Shows no rales, crackles or wheezing. CARDIOVASCULAR: S1, S2. Regular rhythm. ABDOMEN: Soft. Positive bowel sounds. Nontender. GENITALIA: Female. RECTAL: Examination is deferred. EXTREMITIES: Show no pitting edema, no calf numbness, no Homans' sign. MUSCULOSKELETAL: Shows a body mass index of 19. NEUROLOGIC: The patient is alert, awake, responsive, confused, disoriented, uncooperative. VASCULAR: Palpable pulses. DIAGNOSTICS: On 04/04, sodium 145, potassium 4.1, chloride 108, CO2 28, anion gap 14, BUN 15, creatinine 0.7, GFR greater than 60, glucose 87, calcium 9.9, magnesium 1.8. LFT shows AST of 39. Vitamin D 25-hydroxy 52. RPR, Lyme antibody titers negative. Urine drug screen negative. Urine cultures negative from 04/02. Patient's echocardiogram done, results pending. IMPRESSION AND PLAN 1. Lewy body dementia with adverse reaction to Seroquel including muscle spasm. 2. Pyuria. 3. Deconditioning. 4. Gait dysfunction. 5. Possible behavioral disturbance with uncooperative behavior. 6. Hypokalemia. 7. Questionable transaminitis. 8. Microscopic hematuria, bacteriuria. 9. Moderate diffuse chronic white matter ischemic disease of the brain with cerebral cortical atrophy. 10. Moderate diffuse chronic white matter ischemic disease of the brain extending peripherally into the deep and subcortical white matter of both cerebral hemispheres. 11. Cerebral cortical atrophy of the brain. 12. Right axis deviation. 13. Diffuse cerebral slowing with abnormal EEG consistent with bilateral cerebral dysfunction. Plan at this time, patient has been accepted to subacute rehab at [facility]. Patient will be discharge as patient's family has also agreed to it. DISCHARGE MEDICATIONS: Patient's discharge medications are: 1. Klonopin 1 mg three times a day. 2. Depakote 125 mg twice a day. 3. Namenda 10 mg twice a day. 4. Remeron 15 mg at bedtime. 5. Protonix 40 mg daily. 6. Seroquel 12.5 mg at bedtime. Patient was initially ordered to be discharged to Psych if accepted or discharge to subacute rehab of family's choice. Patient's discharge medications as per above. Time spent in the entire discharge process, more than 45 minutes. Dictated and electronically signed, not read. Maxx Devries MD
--- NOTE | 2017-04-05 17:36 | CARD ---
APPROVED REPORT EXAM: Two-dimensional and M-mode echocardiogram with Doppler and color Doppler. INDICATION HTN/AMS 2D DIMENSIONS IVSd1.1 (0.7-1.1cm)LVDd3.4 (3.9-5.9cm) PWd1.0 (0.7-1.1cm)LVDs2.3 (2.5-4.0cm) FS (%) 32.8 %LVEF (%)62.6 (>50%) M-Mode DIMENSIONS Aortic Root2.80 (2.2-3.7cm)Aortic Cusp Exc.1.40 (1.5-2.0cm) Aortic Valve AoV Peak Hmremvkd020.0cm/Darian Peak GR.6mmHg Mitral Valve E/A ratio0.0 TDI E/Lateral E'0.0E/Medial E'0.0 Tricuspid Valve TR Peak [id number] [id number] Peak Gr.23mmHg [id number] LEFT VENTRICLE The left ventricle is normal size. There is normal left ventricular wall thickness.EF-65% The left ventricular function is normal. The left ventricular ejection fraction is within the normal range. There is normal LV segmental wall motion. The left ventricular diastolic function is normal. No left ventricle thrombus noted on this study. There is no ventricular septal defect visualized. There is no left ventricular aneurysm. There is no mass noted in the left ventricle. RIGHT VENTRICLE The right ventricle is normal size. There is normal right ventricular wall thickness. The right ventricular systolic function is normal. ATRIA The left atrium size is normal. The right atrium size is normal. The interatrial septum is intact with no evidence for an atrial septal defect. AORTIC VALVE The aortic valve is normal in structure. No aortic regurgitation is present. There is no aortic valvular stenosis. There is no aortic valvular vegetation. MITRAL VALVE The mitral valve is thickened but opens well. Mitral regurgitation is trace. There is no mitral valve stenosis. There is no evidence of mitral valve prolapse. TRICUSPID VALVE The tricuspid valve leaflets are thickened , but open well. There is trace tricuspid regurgitation.RVSP-33 mmofHg There is no tricuspid valve stenosis. There is no tricuspid valve prolapse or vegetation. PULMONIC VALVE The pulmonic valve is not well visualized. GREAT VESSELS The aortic root is normal in size. The ascending aorta is normal in size. The pulmonary artery is normal. The IVC is normal in size and collapses >50% with inspiration. PERICARDIAL EFFUSION There is no pleural effusion. There is no pericardial effusion. <Conclusion> Normal chamber Size. EF-65% Trace MR/TR RVSP-33 mmof hg There is no pericardial effusion. No Vegetation or thrombus noted Pt. was very combative at the time of study.
== END 2017-04-04 20:28 | DRG 57 ==
LOC: ED 18:34 → ERH 21:57 → 5RNO 03-31 04:53
PROVIDERS: ADMIT Internal Medicine; ATTEND Internal Medicine
DX: G31.83 Neurocognitive disorder with Lewy bodies (principal); G30.9 Alzheimer's disease, unspecified; F02.81 Dementia in other diseases classified elsewhere, unspecified severity, with behavioral disturbance; N39.0 Urinary tract infection, site not specified; F05 Delirium due to known physiological condition; E87.6 Hypokalemia; R26.9 Unspecified abnormalities of gait and mobility; M26.02 Maxillary hypoplasia; G47.00 Insomnia, unspecified; M62.838 Other muscle spasm; R32 Unspecified urinary incontinence; R33.9 Retention of urine, unspecified